=== PATIENT | female | born 1960 | race Caucasian/White ===

== ENCOUNTER 2018-05-06 09:10 | Emergency (ER) | payer OTHER ==
[~2018-05-06] VITALS: Ht 162.6 cm; Wt 58.0 kg
[2018-05-06 09:33] VITALS: Ht 162.6 cm; Wt 58.0 kg
[2018-05-06 10:29] LABS: CALCIUM 9.4 mg/dL (8.5-10.1); CARBON DIOXIDE 29.4 mmol/L (21-32); CHLORIDE SERUM 104 mmol/L (98-107); CREATININE SERUM 0.7 mg/dL (0.6-1.0); GFR1 > 60 mL/min; GLUCOSE SERUM 97 mg/dL (74-106); POTASSIUM SERUM 4.2 mmol/L (3.5-5.1); SODIUM SERUM 142 mmol/L (136-145)
[2018-05-06 10:40] LABS: BASOPHIL % 0.6 % (0-2); PLATELET COUNT 360 x10^3mcL (130-400); RED CELL DISTRIBUTION WIDTH 13.3 % (11.5-14.5)
[2018-05-06 11:31] LABS: microscopic required? YES; urine erythrocyte 2+ (NEGATIVE)
[2018-05-06 12:20] VITALS: BP 135/75
== END 2018-05-06 12:20 | disposition home or self-care (01) ==
LOC: ED 09:10
PROVIDERS: Emergency Medicine
DX: G62.9 Polyneuropathy, unspecified (principal); F43.8 Other reactions to severe stress; R41.9 Unspecified symptoms and signs involving cognitive functions and awareness
CPT/HCPCS: 36415; Q0092